=== PATIENT | female | born 1955 ===

== ENCOUNTER 2025-07-21 19:41 | Inpatient (IN) | payer MEDICARE, MEDICAID ==
[~2025-07-21] VITALS: Ht 167.6 cm; Wt 70.0 kg
--- NOTE | 2025-07-21 20:11 | Physician Documentation ---
History of Present Illness ~ Stated Complaint: GENERAL ILLNESS Time Seen by MD: 20:05 OK to notify your PCP?: Yes HPI History, review of systems, physical examination are limited secondary to patient's unwillingness to participate. Evidently this is a 69-year-old female with a known history of renal disease, who resides in an independent shelter apartments, was transported to our facility because she requires 247 care, however all of her caregivers quit because she was mean to them, noncompliant with her regimen, and mistreated it all of her caregivers. It appears the patient has been in hospice, however she had taken herself off of hospice. At the time of my examination the patient is awake, alert, but mumbles and does not enunciate any words. I can not understand a word that she is trying to say. Per EMS she is able to speak proper Yi with the appropriate enunciation. Review of Systems ROS 10 point review of systems was performed and unless noted above in HPI is negative for acute process/complaint. Physical Exam Vital Signs: Temperature: 97.4, Source: Axillary, Heart Rate: 84, Respiratory Rate: 16, BP: 146/68, Pulse Oximetry: 94, Weight: 70.000 Oxygen Flow Rate: 0 Physical Exam GENERAL: Awake, unable to assess mentation due to non participation, no apparent distress, chronically ill appearing, does not answers questions, does not not follows commands appropriately. Examined in bed 13. HEENT: Atraumatic, normocephalic, pupils equal, extraocular muscles intact, sclerae anicteric, mucus membranes dry, oropharynx is clear, no stridor. NECK: supple, full active range of motion, trachea midline, no thyromegaly, no lymphadenopathy, no JVD. CARDIOVASCULAR: regular rate/rhythm, no murmurs/gallops/rubs, Pulses are 2+ in all extremities and symmetric. Capillary refill less than 2 seconds. PULMONARY: Nonlabored, good air movement ,no respiratory distress, speaking in full sentences, clear to auscultation bilaterally, no wheezing, no ronchi, no rales, no accessory muscle use. GASTROINTESTINAL: Soft, non-tender, non-distended, normal active bowel sounds, no organomegaly, no pulsatile masses, no CVA tenderness. NEUROLOGIC: Normal facial symmetry. Moves all extremities symmetrically and with purpose. No truncal ataxia. She is mumbling. Unknown if this is dysarthria, dry mouth, or volitional non participation. MUSCULOSKELETAL: There is full range of motion of all extremities. There is no joint pain or joint swelling or joint erythema. There is no muscle pain or tenderness or swelling. EXTREMITIES: warm, well-perfused, no cyanosis, no clubbing, no edema, no acute deformities. Skin: warm, dry, no rashes or lesions, no jaundice, no petechiae orpurpura. No ecchymosis. PSYCHIATRIC: Unable to assess Progress Results/Orders Results/Orders Orders - DIMITRIS FALCON DO Urinalysis, Cult If Indicated (07/21/25 20:05) Chest,Single View (07/21/25 20:05) Monitor (07/21/25 20:05) Saline Lock (07/21/25 20:05) Page Hospitalist (07/21/25 23:43) Fill Out Med Reconciliation (07/21/25 23:43) Calcium Gluc 1gm/50ml Nacl,Iso (Calcium (07/21/25 23:45) Insulin Regular, Human (Humulin R 10 Uni (07/21/25 23:45) Dextrose 50%-Water (Dextrose 50%-Water S (07/21/25 23:45) Sodium Zirconium Cyclosilicate (Lokelma (07/21/25 23:45) Albuterol 2.5mg/3ml Nebule (Proventil 2. (07/21/25 23:45) * Rt Notification Q1H (07/21/25 23:43) Completed Orders - DIMITRIS FALCON DO Electrocardiogram (07/21/25 20:05) Cbc/Diff (07/21/25 20:05) CK (07/21/25 20:05) ESR (07/21/25 20:05) C-Reactive Protein (07/21/25 20:05) Pt Inr (07/21/25 20:05) PTT (07/21/25 20:05) Chest,Single View (07/21/25 20:05) PBNP (07/21/25 20:05) MG (07/21/25 20:05) CMP (07/21/25 20:05) Hs Troponin I W Calculations (07/21/25 20:05) Hs Troponin I W Calculations (07/21/25 22:05) Vital Signs 07/21/25 07/21/25 19:45 22:29 Temp 97.4 Pulse 84 65 Resp 16 16 B/P (MAP) 146/68 131/59 (83) Pulse Ox 94 96 O2 Flow Rate 0 Laboratory Tests Test 07/21/25 21:10 07/21/25 22:39 White Blood Count 9.1 Red Blood Count 3.90 L Hemoglobin 11.0 L Hematocrit 32.9 L Mean Corpuscular Volume 84.4 Mean Corpuscular Hemoglobin 28.3 Mean Corpuscular Hemoglobin Concent 33.5 Red Cell Distribution Width 17.8 H Platelet Count 243 Mean Platelet Volume 8.8 Neutrophils (%) (Auto) 83.5 H Lymphocytes (%) (Auto) 8.9 L Monocytes (%) (Auto) 4.6 Eosinophils (%) (Auto) 2.1 Basophils (%) (Auto) 0.9 Neutrophils # (Auto) 7.6 Lymphocytes # (Auto) 0.8 L Monocytes # (Auto) 0.4 Eosinophils # (Auto) 0.2 Basophils # (Auto) 0.1 CBC Comment Erythrocyte Sedimentation Rate 28 Prothrombin Time 11.4 INR International Normalized Ratio 1.1 Activated Partial Thromboplast Time 42 H Coagulation Comments Sodium Level 138 Potassium Level 6.6 *H Chloride Level 106 Carbon Dioxide Level 15.9 L Anion Gap 18 H Blood Urea Nitrogen 142 H Creatinine 13.52 H Estimated GFR/1.73 m2 3 BUN/Creatinine Ratio 10.5 Glucose Level 96 Calcium Level 8.3 L Magnesium Level 4.9 *H Total Bilirubin 0.4 Aspartate Amino Transf (AST/SGOT) 19 Alanine Aminotransferase (ALT/SGPT) 18 Alkaline Phosphatase 100 Total Creatine Kinase 89 Troponin I High Sensitivity 13 14 C-Reactive Protein 13.19 H Pro-B-Type Natriuretic Peptide 314 H Total Protein 5.6 L Albumin 2.2 L Globulin 3.4 Albumin/Globulin Ratio 0.6 L Chemistry Comments Troponin I High Sens Percent Delta 7 Troponin I Hi Sens Absolute Change 1 EKG/XRAY/CT/US/VASC/MRI EKG : Additional Comment EKG was obtained and interpreted by myself showing sinus rhythm of 89, normal VT interval, borderline QRS, no QT prolongation, normal axis, no STEMI. Medical Decision Making Findings Facility Status: ED Holds, E process The plan was discussed with the patient, who demonstrates clear understanding of the plan and is in agreement with the plan unless otherwise noted in the chart. All questions have been answered, all concerns were addressed unless otherwise documented. I was available throughout their ED stay for frequent reassessment and questions. Differential Diagnoses (considered and possible or likely): [Most likely this represents a social nightmare and patient will require placement, however per EMS she was adamant that she does not want to go to a half-way facility, however it also appears that she had antagonize all of her caregivers. This is likely a self inflicted crisis. From the medical standpoint, I have considered dehydration, hypoglycemia, electrolyte derangement, urinary tract infection, pneumonia, occult bacteremia, less likely ACS or CHF. There is no evidence of lateralizing sinuses suspect a stroke.] ??Differential Diagnoses (considered and unlikely, not requiring evaluation currently): [I do not appreciate any trauma] MDM Data Please see HPI for the following: Independent Historians and external Records Re view. Historian: Patient does not willing to provide any information at this time. Independent Historians: ?[Record review, EMS] Medication Management: [Reviewed medication list] Social History and determinants: [Reviewed] Please see the body of the note for the following: Any independent interpretations of ECG, imaging studies. All vitals signs/haemodynamics, ordered tests were independently reviewed and interpreted by myself. Nursing triage complaint and vitals reviewed, additional nursing notes were r eviewed as available and I agree unless otherwise noted or documented in contradiction in the chart Vital Signs: Independently reviewed Labs: Independently interpreted Imaging: Independently interpreted Old Medical Records: Independently reviewed, see HPI for relevant summary and information Pulse Oximetry: [98%] interpreted as [normal on room air] by me [Economics Department Chair: [Regular Rate, Regular rhythm, no ectopy, NSR] reviewed and interpreted by me] Additionally notably showing: [Hemodynamics reviewed. The patient is not febrile, not tachycardic, no evidence of hypotension respiratory distress. CBC shows mild anemia, no leukocytosis, 83% neutrophilic predominance. Coagulation panel was unremarkable. Chemistry notable for hyperkalemia of 6.6, less likely related to her chronic disease and severe kidney disease with a creatinine of 13.5. Magnesium is markedly elevated. Troponin is normal. BNP slightly elevated.. CRP is notably chest x-ray shows pulmonary edema elevated] Tests considered but not ordered include: [Not applicable] Social Determinants of Health Impact: Patient was evaluated in [facility], or [facility] [place] to healthcare due to below par ratio of patient to medical providers. [] Comorbid Conditions Impacting Present Evaluation and Care/Treatment: [Multiple, see list] Management Discussions with other Healthcare Providers: [Hospitalist regarding admission] Treatment and Disposition Medication Management (Given or considered): [Hyperkalemia treatment]. See EMR for details Consideration for Hospitalization/Escalation/Deescalation of Care: Admission for hospitalization an inpatient management is necessary for further management of her end-stage kidney disease and hyperkalemia. ?ED Course:?[No clinical deterioration] ?Shared decision making:?[] Code status:?FULL Please see the full Electronic Medical Record for full details of nursing documentation, medications list, other records of complete past medical history and conditions, vital signs, laboratory studies, and any radiologic study interpretations by radiologists. Portions of this note were completed using [facility] dictation software and as a result there may exist minor errors in spelling. I have reviewed elements of past family and social history and agree as included in note. Departure Disposition: ADMITTED INPATIENT Admitted to Inpatient Unit: to hospitalist Impression: Primary Impression: Hyperkalemia Additional Impressions: Anemia End stage renal disease Acute kidney injury Generalized weakness Condition: Guarded Referrals: NO PRIMARY CARE PROVIDER (PCP) Critical Care Note Critical Care Note CRITICAL CARE TIME: [ 45] minutes Treatments/Evaluations: Close monitoring and treatment of unstable vital signs, cardiorespiratory, and neurologic status, while maintaining tight balance of fluid, respiratory, and cardiac interventions. This time includes discussing the case with the patient and the patients family. This time does not include all procedures stated elsewhere in this record. This time also includes reviewing old records, labs and radiological studies. This time includes examining and re- examining the patient. Additionally, this time also includes arranging care with admitting and consulting physicians. Signature Scribe Signature: No scribe Attestation: This note accurately reflects clinical decisions, work performed by myself, Dimitris Falcon, DIMITRIS PETER DO Jul 21, 2025 20:11
--- NOTE | 2025-07-21 20:12 | ELECTROCARDIOGRAPH REPORT ---
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 Prasanth Patricia Measurements Intervals [place] Rate: 89 P: 72 NV: 151 QRS: 75 QRSD: 112 T: 60 QT: 373 QTc: 454 Interpretive Statements Sinus rhythm Borderline intraventricular conduction delay Borderline low voltage, extremity leads Abnormal inferior Q waves Electronically Signed On 08-02-2025 18:47:[address] Prasanth Patricia Please click the below link to view image of tracing.
--- NOTE | 2025-07-21 20:32 | RADIOLOGY REPORT ---
CHEST RADIOGRAPH Indication: Weakness Technique: Single frontal view of the chest was obtained COMPARISON: None FINDINGS: Lines and Tubes: None Lungs: Edema Pleura: Small bilateral pleural effusions No pneumothorax. Cardiomediastinal contours: Unremarkable Bones: Unremarkable IMPRESSION: Pulmonary edema
[2025-07-21 21:26] LABS: MEAN PLATELET VOLUME 8.8 FL (7.4-10.4); RED CELL DISTRIBUTION WIDTH 17.8 % (11.5-14.5)
[2025-07-21 21:36] LABS: APTT 42 SECONDS (22-32); INR 1.1 INR
[2025-07-21 21:55] LABS: CREATININE 13.52 MG/DL (0.40-0.90); PRO BRAIN NATRIURETIC PEPTIDE 314 PG/ML (0-125); TOTAL CARBON DIOXIDE 15.9 MMOL/L (24-32); eCRCL 4 ML/MIN; eGFR 3 ML/MIN
[2025-07-21] MEDS: albuterol 2.5 MG/3 ML nebule NEB ONE (23:45)
[2025-07-21] MEDS ORDERED: CALCIUM GLUC 1gm/50ml NACL,iso 50 ML IV PRN (23:45)
[2025-07-22] MEDS ORDERED: ondansetron/PF 4mg/2ml inj IV PRN (00:45)
[2025-07-22] MEDS ORDERED: magnesium hydroxide 30ml (MOM) UD suspension PO PRN (00:45)
[2025-07-22] MEDS ORDERED: mag hydrox/Alum hydrox/simeth 30ml oral suspension PO PRN (00:45)
[2025-07-22] MEDS ORDERED: furosemide 10 MG/1 ML 10ml inj IV SCH (01:00)
--- NOTE | 2025-07-22 02:03 | RADIOLOGY REPORT ---
EXAM: CT CT HEAD INDICATION: ALOC TECHNIQUE: CT of the head without intravenous contrast. Radiation Dose : 1. Head: CT Dose: CTDI volume is 52.96 mGy. Dose-length product is 973.09 mGy*cm The dose indicators for CT are the volume Computed Tomography (CT) Dose Index (CTDIvol) and the Dose Length Product (DLP), and are measured in units of mGy and mGy-cm, respectively. These indicators are not patient dose, but values generated from the CT scanner acquisition factors. The report includes radiation exposure data for exposures received during this examination. COMPARISON: None FINDINGS: There is no evidence of acute intracranial hemorrhage, extra-axial collection, mass effect, midline s hift, herniation or hydrocephalus. The ventricles, sulci and cisterns are age appropriate. The morfin-white differentiation is intact. Patchy periventricular and subcortical white matter hypoattenuation is nonspecific but may be related to small vessel ischemic disease. The visualized paranasal sinuses and mastoid air cells are clear. The surrounding soft tissues and osseous structures are unremarkable. IMPRESSION: 1. No acute intracranial abnormality. Radiation optimization: All CT scans at this facility use at least one of these dose optimization lianna hniques: automated exposure control mA and/or kV adjustment per patient size (includes targeted exam s where dose is matched to clinical indication) or iterative reconstruction.
--- NOTE | 2025-07-22 06:01 | HISTORY AND PHYSICAL-Residence ---
History & Physical Providers to CC Resident Creating Document: AVTAR THEODORE, RES ~ History of Present Illness Reason for Admit\Complaint: Acute on chronic kidney disease History of Present Illness 69 years old female with past medical history of renal failure, hypertension, recurrent urinary tract infection, lupus was brought in from her [facility] after she revoked her self out of hospice care. The patient is not able to communicate any of her wishes, concerns or complaints. She is not able to answer to any of my questions. She is able to follow commands but is not communicating at all. Per the ER physician the patient was very rude and mean to all of her caregivers at the [facility] and was hence transferred out of the facility as they were not able to provide care for the patient. The ER physician also reported that the patient was on hospice care until yesterday in view of her advanced renal failure but has decided to get out of hospice care. We tried to reach [facility] for further information regarding the patient but were not successful. The patient initially refused to any treatment but is not able to communicate her understanding of her decisions. We are not sure in the patient is oriented to time place and person. She mumbles seeing her back hurts but apart from that she is not able to say anything else. Allergies: Coded Allergies: Penicillins (Verified Allergy, Unknown, 07/22/25) antihemophilic factor VIII, human recombinant (Verified Allergy, Unknown, 07/22/25) codeine (Verified Allergy, Unknown, 07/22/25) fentanyl (Verified Allergy, Unknown, 07/22/25) TOPICAL ketamine (Verified Allergy, Unknown, 07/22/25) midazolam (Verified Allergy, Unknown, 07/22/25) propofol (Verified Allergy, Unknown, 07/22/25) Past Medical History Past Medical History From the records sent from [facility] patient has a history of renal failure, hypertension, urinary tract infections, lupus Past Surgical History Surgical History Comment Not known Past Social History Social History Comment Was on hospice care but currently is not on hospice care. Was a resident at [facility] BRADEN FELICIANO Unable to perform a complete review of systems. Exam Vitals: Vital Signs Date Time Temp Pulse Resp B/P (MAP) Pulse Ox O2 Delivery O2 Flow Rate FiO2 07/22/25 04:00 82 8 142/68 (92) 96 07/21/25 19:45 97.4 0 General: General: Somnolent elderly female, emaciated, mumbling not able to communicate clearly. Follows commands. Intermittently answers questions but then continues to not answer or communicate. HEENT: Conjunctiva pink, Sclera clear, Mucus Membranes moist. Neck: Supple without masses and tenderness. Resp: Bibasilar crackles present. Heart: Regular Rate and rhythm, normal S1 and S2 without murmur, rub or gallop. Abdomen: Soft and non tender no organomegaly Extremities: 3+ edema in bilateral lower extremities. Skin: Warm and Dry. Neurology: Mood more four extremities. Musculoskeletal: Not able to assess complete range of motion. Psychiatry: Not able to assess as the patient is not able to communicate her wishes. Diagnostic Data Last Recorded Lab Results: 07/22/25 0700 07/22/25 0740 Diagnostic Data: Laboratory Tests Test 07/21/25 21:10 Prothrombin Time 11.4 SECONDS (9.0-12.0) INR International Normalized Ratio 1.1 INR Activated Partial Thromboplast Time 42 SECONDS (22-32) H Coagulation Comments Additional Plan Acute on chronic kidney disease Hyperkalemia Hypermagnesemia The patient's creatinine is 13.52 and BUN is 142. Has a elevated potassium of 6.6. No significant EKG changes noted. Magnesium 4.9. The patient was planned to be treated with IV insulin, IV calcium gluconate and Lokelma in view of her hyperkalemia. She refused any treatments initially. She initially refused to get any IV put in. Now she has a agreed. We will proceed with treatment as accepted by the patient. The on-call information management specialist Dr. Laura was consulted by Dr. Perrin. Per Dr. Laura the patient has a history of obstructive uropathy and has been refusing treatments/intervention in the past. Dr. Laura recommended urology consultation per Dr. Perrin. Follow up with the ultrasound of the abdomen. Also started the patient on IV Lasix 40 b.i.d. in view of her fluid overloaded condition. Patient might require dialysis. Strict input output monitoring. Follow up as per Nephrology recommendation. Consult Urology. Continue to monitor the patient's electrolytes closely. Congestive heart failure Patient has a elevated proBNP of 314 X-ray significant for pulmonary congestion most likely due to her fluid overloaded state. Started the patient on IV Lasix 40 b.i.d.. Follow up with the ECHO. History of lupus Patient has a elevated C-reactive protein of 13.19 Records at her bedside stated that she has a history of lupus. Awaiting to get further information on her medical condition. Disposition: The patient is not able to communicate her wishes, concerns or complaints. I am not sure of the patient is at her baseline or if she is more confused than usual. The patient is not able to state her code status or her advance directive. She is not able to explain her wishes. Hence currently we are placing the patient on full code. She reports she has two children but is not able to provide further information. Please consult psychotherapist social worker. We also tried contacting the patient's care facility but the office is closed until 9:00 a.m.. 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 Consult mental health case manager, psychotherapist social worker, urology. Avtar Theodore MD Internal Medicine Resident, PGY-3 Addendum I personally reviewed the chart, labs and imaging and reviewed the patient with the team. I agree with the assessment and plan as documented by the resident. Patient was seen through remote audio-visual assessment through HIPAA compliance setup. Date of Service: Jul 22, 2025 Billing Provider: NAYANA PELLETIER MD, SURYA PRATIK, TIERA Jul 22, 2025 06:01 NAYANA PELLETIER MD Jul 23, 2025 06:46
[2025-07-22] MEDS: SODIUM ZIRCONIUM CYCLOSILICATE 10 GM POWD.PACK PO ONE (06:26)
[2025-07-22] MEDS: furosemide 10 MG/1 ML 10ml inj IV SCH (06:27)
[2025-07-22] MEDS: dextrose 50%-water 50ml dispensing syringe IV ONE (06:27)
[2025-07-22] MEDS: insulin regular, human 10 units/0.1 ml syringe IV ONE (06:33)
[2025-07-22 08:00] LABS: MEAN PLATELET VOLUME 9.3 FL (7.4-10.4); RED CELL DISTRIBUTION WIDTH 17.6 % (11.5-14.5)
[2025-07-22] MEDS: docusate sod 100mg capsule PO SCH (08:00)
--- NOTE | 2025-07-22 08:23 | PROGRESS NOTE ---
Progress Note Dictate Providers to CC ~ Central Line/PICC still needed: N\A Antibiotic Ordered?: N/A MRSA Education MRSA Education Provided to pt: N/A Subjective Subjective i have consulted on her twice in recent times, once in [facility] last admission and once in [facility] after that. during both times, she was quite rude to me, and to other staff members, and clearly mentioned 'why none of you understand that I want only comfort measures and I do not want any of you doing all these proposed procedures on me?' She was fully conscious and oriented. She clearly did not allow me to initiate dialysis , nor would she allow who personally came and spoke to her to make her understand the need for the cystoscopy and ureteric stents to relieve the kidney failure after I spent almost 2 hours on that day to help her. All I got was a rude response and she went on hospice. We both signed off. She told me that she almost on the table during a previous operative procedure and she would not allow any other anesthesiologists except some one to give her anesthesia, but then backed off totally. She also wanted to know if anyone will take the gall bladder out of her that was inflamed. Then she said no to that as well. please review records about these. The team in [facility] spent quite sometime sorting out her needs and I am not in any position to help her at this time. When she was fully conscious, she flat out refused dialysis. No family to talk to as she says she is estranged from her folks. Now that she is uremic, it is not ethically correct on my part to jump on doing procedures to get her out of this with dialysis, and I am not prepared to get involved with her renal care. Please understand that I make this decision after spending hours with her when she was fully conscious. She made a conscious decision to not be placed on dialysis or ureteric stent intervention. All she wanted was to peacefully. Objective Vitals Vital Signs Date Time Temp Pulse Resp B/P (MAP) Pulse Ox O2 Delivery O2 Flow Rate FiO2 07/22/25 08:00 16 07/22/25 06:00 82 96 07/21/25 19:45 97.4 0 Lab Results: 07/22/25 0700 07/21/25 2110 Coagulation Studies Laboratory Tests Test 07/21/25 21:10 Prothrombin Time 11.4 SECONDS (9.0-12.0) INR International Normalized Ratio 1.1 INR Activated Partial Thromboplast Time 42 SECONDS (22-32) H Coagulation Comments REED LANDA MD Jul 22, 2025 08:23
[2025-07-22] MEDS: heparin, porcine 5000 units/ml vial SQ SCH (09:10)
[2025-07-22 09:58] LABS: CREATININE 13.62 MG/DL (0.40-0.90); TOTAL CARBON DIOXIDE 16.8 MMOL/L (24-32); eCRCL 4 ML/MIN; eGFR 3 ML/MIN
[2025-07-22 11:00] VITALS: BP 93/56; PULSE 60; RESP 18; TEMP 98.1; O2SAT 98
[2025-07-22 13:37] VITALS: RESP 16; O2SAT 93
[2025-07-22 15:00] VITALS: BP 112/62; PULSE 62; RESP 19; TEMP 97.9; O2SAT 97
--- NOTE | 2025-07-22 16:56 | RADIOLOGY REPORT ---
CLINICAL INFORMATION: 70 years old, Female; ALY . TECHNIQUE: Grayscale sonographic imaging of the abdomen was performed, assisted by color Doppler lianna hnique. COMPARISON: None FINDINGS: Examination is limited due to the patient's clinical condition. Patient is unable to coope rate with the exam. The gallbladder wall measures 1.5 mm in thickness, within normal limits. Shadow ing gallstone in the gallbladder measures up to 2.2 cm in greatest dimension. Negative reported sonog raphic Tena's sign. The common bile duct measures 4.5 mm in diameter, within normal limits. Liver is normal in size. Coarsened, heterogeneous echogenicity of the liver. Pancreas is obscured by bowel gas. The right kidney measures 9.1 cm. There is no hydronephrosis. Grossly unremarkable cortical thickne ss and echogenicity, although suboptimally evaluated. There is trace free fluid interposed between th e right kidney and liver. The left kidney measures 9.3 cm. There is no hydronephrosis. Grossly unremarkable cortical thickne ss and echogenicity, although suboptimally evaluated. The spleen measures 9.5 cm. Unremarkable echogenicity. IVC is patent. Aorta is poorly visualized. IMPRESSION: 1. Cholelithiasis. No sonographic evidence of acute cholecystitis. 2. Heterogeneous, coarsened liver echotexture. Correlate with clinical findings. Liver is suboptimal ly evaluated on this exam. 3. Limited examination for the reasons described above. 4. Trace free fluid interposed between the liver and right kidney.
[2025-07-22 18:00] VITALS: BP 154/64; PULSE 77; RESP 19; TEMP 97.3; O2SAT 95
[2025-07-22] MEDS ORDERED: morphine 10mg/ml inj. IV PRN (18:30)
--- NOTE | 2025-07-22 18:58 | PROGRESS NOTE- Residence ---
Progress Note - Resident Providers to CC Resident Creating Document: BALAJI PIERSON RES ~ Antibiotic Timeout Antibiotic Ordered?: No Subjective Patient seen and examined today. She is in pain and only moans to sternal rub or moving her legs. Deputy Sheriff Generalist-Dr. Laura aware of the patient and she wanted to peacefully without any aggressive treatment measures when she was fully conscious. Now, she can not talk and just moans with pain. Agreeing with Dr. Laura's assessment and strongly believe that she needs to be comfort care. She was on comfort care back at the facility. Changed her back to DNR with the comfort care. Tried contacting the [facility] at [phone] but none answered. Objective Vital Signs Date Time Temp Pulse Resp B/P (MAP) Pulse Ox O2 Delivery O2 Flow Rate FiO2 07/22/25 15:00 97.9 62 19 112/62 (79) 97 Room Air 07/21/25 19:45 0 Result Diagram: 07/22/25 0700 07/22/25 0740 General: GCS four-eye opening to pain, no verbal response, no motor response HEENT: Normocephalic and atraumatic. Pupils equal round and reactive to light and accommodation. Extraocular movements intact. Oral and nasal mucosa dry Neck: Trachea is in midline. No masses or JVD Lungs: Bilateral mildly decreased breath sounds. Bilateral basal crackles present. No rhonchi or wheezes Heart: Regular rate and rhythm. S1-S2 normal. No rubs or murmurs Abdomen: Soft, nontender and nondistended. Bowel sounds present COMMUNITY LIAISON OFFICER: Severe pain upon touching or even moving legs slightly. Can not understand or follow commands. Could not elicit neurological examination Extremities: 3+ bilateral pedal edema. No cyanosis or clubbing Skin: Warm and dry Coagulation Studies Laboratory Tests Test 07/21/25 21:10 Prothrombin Time 11.4 SECONDS (9.0-12.0) INR International Normalized Ratio 1.1 INR Activated Partial Thromboplast Time 42 SECONDS (22-32) H Coagulation Comments Advance Care Planning Advanced Care plannin - 30 Minutes Plan Plan The 69-year-old female with past medical history of end-stage renal disease, obstructive uropathy, hypertension, recurrent urinary tract infection, lupus was brought in from her [facility] Facility as they could not provide her 24 hour care. She was on hospice at the facility. Tried contacting the [facility] facility at [phone] but none answered. No family available. Now, she does not respond and only moans to pain. She does not understand and cannot follow commands. Can not eat or drink anything. Her electrical prospecting supervisor-Dr. Laura is aware of the patient's wishes to be on comfort care. I strongly agree with the plan and the patient is changed to DNR with comfort care. She is getting morphine/Ativan/senna/Tylenol as needed Requested social insurance analyst consult. Acute on chronic kidney disease Hyperkalemia Hypermagnesemia Congestive heart failure History of lupus Complete immobility due to fraility Balaji Pierson MD Internal Medicine Resident, PGY 3 Date of Service: Jul 22, 2025 Billing Provider: ZANDER MCWILLIAMS MD, MANOJNA RES Jul 22, 2025 18:58
[2025-07-22 20:00] VITALS: RESP 19; O2SAT 95
[2025-07-23 07:00] VITALS: BP 139/54; PULSE 87; RESP 14; TEMP 97; O2SAT 94
[2025-07-23 07:16] LABS: MEAN PLATELET VOLUME 8.9 FL (7.4-10.4); RED CELL DISTRIBUTION WIDTH 17.9 % (11.5-14.5)
[2025-07-23 07:34] LABS: CHOL/HDL RATIO 5.4 (0.00-4.99); CREATININE 13.82 MG/DL (0.40-0.90); LDL CHOLESTEROL 111 MG/DL (50-100); eCRCL 4 ML/MIN; eGFR 3 ML/MIN
[2025-07-23 08:37] LABS: TOTAL CARBON DIOXIDE 13.7 MMOL/L (24-32)
[2025-07-23] MEDS: morphine 10mg/0.5ml (conc. morphine) oral syringe PO PRN (10:37)
[2025-07-23 10:56] VITALS: BP 130/64; PULSE 88; RESP 18; TEMP 96.9; O2SAT 91
[2025-07-23] MEDS: morphine 4 MG/ML inj SYRINge IV PRN (10:56)
[2025-07-23] MEDS ORDERED: diazepam inj 5 MG/ML inj. IV PRN (11:15)
[2025-07-23] MEDS ORDERED: haloperidol lactate 5mg/ml inj IM PRN (11:30)
[2025-07-23 13:00] VITALS: RESP 18
--- NOTE | 2025-07-23 16:52 | PROGRESS NOTE- Residence ---
Progress Note - Resident Providers to CC Resident Creating Document: BALAJI PIERSON RES ~ Antibiotic Timeout Antibiotic Ordered?: No Subjective Patient seen and examined today. She is resting in the bed. Nonverbal and does not understand any sentences. Objective Vital Signs Date Time Temp Pulse Resp B/P (MAP) Pulse Ox O2 Delivery O2 Flow Rate FiO2 07/23/25 13:00 18 Room Air 07/23/25 10:56 96.9 88 130/64 (86) 91 07/21/25 19:45 0 Result Diagram: 07/23/2565707/23/25657 General: GCS 6-spontaneous eye opening, no verbal response, no motor response HEENT: Normocephalic and atraumatic. Pupils equal round and reactive to light and accommodation. Extraocular movements intact. Oral and nasal mucosa dry Neck: Trachea is in midline. No masses or JVD Lungs: Bilateral mildly decreased breath sounds. Bilateral basal crackles present. No rhonchi or wheezes Heart: Regular rate and rhythm. S1-S2 normal. No rubs or murmurs Abdomen: Soft, nontender and nondistended. Bowel sounds present IN HOME AIDE: Severe pain upon touching or even moving legs slightly. Can not understand or follow commands. Could not elicit neurological examination Extremities: 3+ bilateral pedal edema. No cyanosis or clubbing Skin: Warm and dry Coagulation Studies Laboratory Tests Test 07/21/25 21:10 Prothrombin Time 11.4 SECONDS (9.0-12.0) INR International Normalized Ratio 1.1 INR Activated Partial Thromboplast Time 42 SECONDS (22-32) H Coagulation Comments Plan Plan The 69-year-old female with past medical history of end-stage renal disease, obstructive uropathy, hypertension, recurrent urinary tract infection, lupus was [facility] in from her [facility] as they could not provide her 24 hour care. She was on hospice at the facility. Tried contacting the [facility] at [phone] but none answered. No family available. Now, she does not respond and only moans to pain. She does not understand and cannot follow commands. Can not eat or drink anything. Her safety manager-Dr. Laura is aware of the patient's wishes to be on comfort care. I strongly agree with the plan and the patient is changed to DNR with comfort care. She is getting morphine/Ativan/senna/Tylenol/Haldol as needed Requested social work job titles consult. 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
--- NOTE | 2025-07-23 17:39 | CARDIOLOGY REPORT ---
APPROVED REPORT EXAM: Comprehensive 2D, Doppler, and color-flow Echocardiogram. Patient Location: [address] Blood Pressure: 93/56 mmHg Heart Rate: 75 bpm Rhythm: Sinus Rhythm Indications Congestive Heart Failure Kidney Failure Hypertension Garage Door Installer: None Previous echo: None 2D Dimensions RVDd 3.4 cm LA Diam4.5 cm RA Minor3.5 cmLVOT Diameter 1.81 (1.8-2.4cm) IVC 11.92 mmCO 3.5 L/min M-Mode Dimensions Left Atrium(MM) 4.43 (2.5-4.0cm) IVSd 1.04 (0.7-1.1cm) LVDd 4.13 (4.0-5.6cm) Aortic Root 2.76 (2.2-3.7cm) PWd 1.08 (0.7-1.1cm) Aortic Cusp Exc 1.87 (1.5-2.0cm) IVSs 1.08 cm MV EPSS 0.7 (<0.5cm) LVDs 2.77 (2.0-3.8cm) FS (%) 33 % PWs 1.40 cm ESV(Teich) 28.8 ml LVEF(%) 62 (>50%) Aortic Valve AoV Peak Chris. 175.5 cm/s AoV VTI 33.6 cm AO Peak GR. 12.3 mmHg AO Mean GR. 6 mmHg LVOT VTI 27.89 cm LVOT Peak Chris. 137.9 cm/s JERO(VTI)/BSA 2.13 cm2/m2 EJRO (VTI) 2.13 cm2 Mitral Valve MV E Velocity 64.3 cm/s MV Peak Gr. 5 mmHg MV DECEL TIME 172 ms MV A Velocity 107.0 cm/s MV Mean Gr. 2 mmHg MV PHT 56 ms E/A Ratio 0.6 MVA (PHT) 3.93 cm2 MV REqf931.1 cm/sMV VMean62.4 cm/s MVA VTI3.50 cm2MV VTI20.5 cm TDI Lateral E' P. V10.47 cm/s E/Lateral E' 6.1 Tricuspid Valve TR P. Velocity 305 cm/s RAP ESTIMATE 10 mmHg TR Peak Gr. 37 mmHg RVSP 47 mmHg Pulmonary Vein S1 Velocity 57.8 cm/s D2 Velocity 39.2 cm/s PVa Cazdlpbm02.3 cm/s PVa [id number] msec LEFT VENTRICLE Normal LV size and wall thickness. Overall systolic function is normal. Overall LVEF is 55-60%. RIGHT VENTRICLE Right ventricle is mildly dilated with normal function. Estimated PA systolic pressure is 47 mmHg. ATRIA Left atrium is mildly dilated. The right atrium size is normal. AORTIC VALVE Trileaflet AV appears sclerotic without stenosis. Trace insufficiency. MITRAL VALVE Mild MV annular calcification without stenosis. Mild regurgitation. TRICUSPID VALVE TV appears structurally normal with trace regurgitation. PULMONIC VALVE Normal PV without stenosis, physiologic insufficiency. GREAT VESSELS The aortic root is normal in size. IVC is normal in size and collapses less than 50% with inspiration . PERICARDIUM Normal pericardium. No pericardial effusion seen. Right Pleural effusion is present. Other Information Study Quality: Adequate Conclusion Overall LVEF is 55-60%. Normal LV size and wall thickness. Overall systolic function is normal. Right ventricle is mildly dilated with normal function. Estimated PA systolic pressure is 47 mmHg. Left atrium is mildly dilated. The right atrium size is normal. Trileaflet AV appears sclerotic without stenosis. Trace insufficiency. Mild MV annular calcification without stenosis. Mild regurgitation. TV appears structurally normal with trace regurgitation. Normal PV without stenosis, physiologic insufficiency. Normal pericardium. No pericardial effusion seen. Right Pleural effusion is present.
[2025-07-23 18:00] VITALS: BP 162/77; PULSE 85; RESP 21; TEMP 98.9; O2SAT 93
[2025-07-23 22:00] VITALS: BP 149/74; PULSE 84; RESP 14; TEMP 96.8; O2SAT 93
[2025-07-24] MEDS: ondansetron/PF 4mg/2ml inj IV PRN (13:22)
[2025-07-24 18:00] VITALS: BP 139/70; PULSE 84; RESP 13; TEMP 97.6; O2SAT 93
--- NOTE | 2025-07-24 20:08 | PROGRESS NOTE- Residence ---
Progress Note - Resident Providers to CC Resident Creating Document: OFELIA PIERSONJabariJOSE RES ~ Antibiotic Timeout Antibiotic Ordered?: No Subjective Patient seen and examined today. Comfortably resting in the bed. Nonverbal. Objective Vital Signs Date Time Temp Pulse Resp B/P (MAP) Pulse Ox O2 Delivery O2 Flow Rate FiO2 07/24/25 08:00 Room Air 0.0 07/23/25 22:00 96.8 84 14 149/74 (99) 93 Result Diagram: 07/23/2565707/23/25657 General: GCS 6-spontaneous eye opening, no verbal response, no motor response HEENT: Normocephalic and atraumatic. Pupils equal round and reactive to light and accommodation. Extraocular movements intact. Oral and nasal mucosa dry Neck: Trachea is in midline. No masses or JVD Lungs: Bilateral mildly decreased breath sounds. Appears tachypneic. Bilateral basal crackles present. No rhonchi or wheezes Heart: Appears tachycardic and sinus rhythm. S1-S2 normal. No rubs or murmurs Abdomen: Soft, nontender and nondistended. Bowel sounds present OCCUPATIONAL HEALTH AND SAFETY ADVISER: Severe pain upon touching or even moving legs slightly. Can not understand or follow commands. Could not elicit neurological examination Extremities: 3+ bilateral pedal edema. No cyanosis or clubbing Skin: Warm and dry Coagulation Studies Laboratory Tests Test 07/21/25 21:10 Prothrombin Time 11.4 SECONDS (9.0-12.0) INR International Normalized Ratio 1.1 INR Activated Partial Thromboplast Time 42 SECONDS (22-32) H Coagulation Comments Plan Plan The 69-year-old female with past medical history of end-stage renal disease, obstructive uropathy, hypertension, recurrent urinary tract infection, lupus was brought in from her [facility] as they could not provide her 24 hour care. She was on hospice at the facility. Tried contacting the [facility] at [phone] but none answered. No family available. Now, she does not respond and only moans to pain. She does not understand and cannot follow commands. Can not eat or drink anything. Her product development chemist-Dr. Laura is aware of the patient's wishes to be on comfort care. I strongly agree with the plan and the patient is changed to DNR with comfort care. She is getting morphine/Ativan/senna/Tylenol/Haldol as needed Requested clinical social work aide consult. 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 Referrals sent to SNFs. Awaiting placement Cindy Pierson MD Internal Medicine Resident, PGY 3 Date of Service: Jul 24, 2025 Billing Provider: ZANDER MCWILLIAMS MD, MANOJNA RES Jul 24, 2025 20:08
[2025-07-24 22:00] VITALS: BP 153/87; PULSE 85; RESP 16; TEMP 97.6; O2SAT 92
[2025-07-25 06:00] VITALS: BP 134/67; PULSE 81; RESP 14; TEMP 97.6; O2SAT 94
[2025-07-25 08:00] VITALS: RESP 14; O2SAT 94
[2025-07-25 18:30] VITALS: BP 146/77; PULSE 89; RESP 17; TEMP 97; O2SAT 94
[2025-07-25 22:00] VITALS: BP 136/79; PULSE 83; RESP 16; TEMP 97.6; O2SAT 94
[2025-07-26 06:00] VITALS: BP 150/85; PULSE 87; RESP 22; TEMP 97.4; O2SAT 95
[2025-07-26 10:00] VITALS: BP 142/74; PULSE 93; RESP 17; TEMP 97.1; O2SAT 94
[2025-07-26 18:00] VITALS: BP 137/71; PULSE 82; RESP 16; TEMP 97.2; O2SAT 93
--- NOTE | 2025-07-26 20:16 | PROGRESS NOTE- Residence ---
Progress Note - Resident Providers to CC Resident Creating Document: BALAJI PIERSON RES ~ Antibiotic Timeout Antibiotic Ordered?: No Subjective Patient seen and examined today. Pulled out her IV line. Per nurses, has been denying morphine and any other medication for anxiety. Objective Vital Signs Date Time Temp Pulse Resp B/P (MAP) Pulse Ox O2 Delivery O2 Flow Rate FiO2 07/26/25 10:00 97.1 93 17 142/74 (96) 94 Room Air 07/26/25 08:00 0.0 Result Diagram: 07/23/2565707/23/25657 General: GCS 6-spontaneous eye opening, no verbal response, no motor response HEENT: Normocephalic and atraumatic. Pupils equal round and reactive to light and accommodation. Extraocular movements intact. Oral and nasal mucosa dry Neck: Trachea is in midline. No masses or JVD Lungs: Bilateral mildly decreased breath sounds. Appears tachypneic. Bilateral basal crackles present. No rhonchi or wheezes Heart: Appears tachycardic and sinus rhythm. S1-S2 normal. No rubs or murmurs Abdomen: Soft, nontender and nondistended. Bowel sounds present SURGERY SCHEDULING COORDINATOR: Severe pain upon touching or even moving legs slightly. Can not understand or follow commands. Could not elicit neurological examination Extremities: 3+ bilateral pedal edema. No cyanosis or clubbing Skin: Warm and dry Coagulation Studies Laboratory Tests Test 07/21/25 21:10 Prothrombin Time 11.4 SECONDS (9.0-12.0) INR International Normalized Ratio 1.1 INR Activated Partial Thromboplast Time 42 SECONDS (22-32) H Coagulation Comments Plan Plan The 69-year-old female with past medical history of end-stage renal disease, obstructive uropathy, hypertension, recurrent urinary tract infection, lupus was brought in from her [facility] as they could not provide her 24 hour care. She was on hospice at the facility. Tried contacting the [facility] at [phone] but none answered. No family available. Now, she does not respond and only moans to pain. She does not understand and cannot follow commands. Can not eat or drink anything. Her broadband technician-Dr. Laura is aware of the patient's wishes to be on comfort care. I strongly agree with the plan and the patient is changed to DNR with comfort care. She is getting morphine/Ativan/senna/Tylenol as needed Requested 7th grade social studies teacher consult. Acute on chronic kidney disease Hyperkalemia Hypermagnesemia Acute on chronic Congestive heart failure with preserved EF History of lupus Complete immobility due to fraility Balaji Pierson MD Internal Medicine Resident, PGY 3 Date of Service: Jul 26, 2025 Billing Provider: ZANDER MCWILLIAMS MD, MANOJNA RES Jul 26, 2025 20:16
[2025-07-27 06:37] VITALS: BP 122/67; PULSE 82; RESP 15; TEMP 97.4; O2SAT 93
--- NOTE | 2025-07-27 18:22 | PROGRESS NOTE- Residence ---
Progress Note - Resident Providers to CC Resident Creating Document: SARAY MCMANUS RES ~ Antibiotic Timeout Antibiotic Ordered?: No Subjective Patient seen and examined today. She is hungry and requesting for a diet, she can have a regular diet if she is able to tolerate else she can have nectar thick/puree diet. She denies any other concerns or complaints. Objective Vital Signs Date Time Temp Pulse Resp B/P (MAP) Pulse Ox O2 Delivery O2 Flow Rate FiO2 07/27/25 09:01 16 07/27/25 08:20 Room Air 0.0 07/27/25 06:37 97.4 82 122/67 (85 93 Result Diagram: 07/23/2565707/23/25657 General: Awake and alert, No acute distress HEENT: Normocephalic and atraumatic. Pupils equal round and reactive to light and accommodation. Extraocular movements intact. Oral and nasal mucosa dry Neck: Trachea is in midline. No masses or JVD Lungs: Bilateral mildly decreased breath sounds. Appears tachypneic. Bilateral basal crackles present. No rhonchi or wheezes Heart: Appears tachycardic and sinus rhythm. S1-S2 normal. No rubs or murmurs Abdomen: Soft, nontender and nondistended. Bowel sounds present TREE TAPPING LABORER: Severe pain upon touching or even moving legs slightly. Can not understand or follow commands. Could not elicit neurological examination Extremities: 3+ bilateral pedal edema. No cyanosis or clubbing Skin: Warm and dry Coagulation Studies Laboratory Tests Test 07/21/25 21:10 Prothrombin Time 11.4 SECONDS (9.0-12.0) INR International Normalized Ratio 1.1 INR Activated Partial Thromboplast Time 42 SECONDS (22-32) H Coagulation Comments Plan Plan The 69-year-old female with past medical history of end-stage renal disease, obstructive uropathy, hypertension, recurrent urinary tract infection, lupus was [facility] in from her [facility] as they could not provide her 24 hour care. She was on hospice at the facility. Tried contacting the [facility] facility at [phone] but none answered. No family available. Now, she does not respond and only moans to pain. She does not understand and cannot follow commands. Can not eat or drink anything. Her non linear editor-Dr. Laura is aware of the patient's wishes to be on comfort care. I strongly agree with the plan and the patient is changed to DNR with comfort care. She is getting morphine/Ativan/senna/Tylenol as needed Requested social work coordinator consult. Acute on chronic kidney disease Hyperkalemia Hypermagnesemia Acute on chronic Congestive heart failure with preserved EF History of lupus Complete immobility due to fraility She is DNR with comfort care, please do not check Vitals, oxygen sats, no ST eval, or telemetry. Give her the diet of her choice. If she is unable tolerate regular diet, she can have puree/nectar thick diet. Saray Mcmanus MD IM Resident, PGY 3. Date of Service: Jul 27, 2025 Billing Provider: ZANDER MCWILLIAMS MD, ELIZABETH, RES Jul 27, 2025 18:22
[2025-07-27 20:00] VITALS: RESP 18
[2025-07-28 07:26] VITALS: RESP 14; O2SAT 96
--- NOTE | 2025-07-28 15:33 | DISCHARGE SUMMARY-Residence ---
Discharge Summary Providers to CC Resident Creating Document: ZACHERYEVEABHIJIT, RES ~ Discharge Summary Admission Diagnosis: HYPERKALEMIA Hospital Course DATE OF ADMISSION: 07/22/2025 DATE OF DISCHARGE: 07/28/2025 Hospital course same as mentioned discharge summary. 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 Laura public health nurse Complications: None Condition on DC: Stable for transfer Medication Profile: No Active Prescriptions or Reported Meds Discharge Summary: As per HPI: 69 years old female with past medical history of renal failure, hypertension, recurrent urinary tract infection, lupus was brought in from her [facility] Facility after she revoked her self out of hospice care. The patient is not able to communicate any of her wishes, concerns or complaints. She is not able to answer to any of my questions. She is able to follow commands but is not communicating at all. Per the ER physician the patient was very rude and mean to all of her caregivers at the [facility] and was hence transferred out of the facility as they were not able to provide care for the patient. The ER physician also reported that the patient was on hospice care until yest erday in view of her advanced renal failure but has decided to get out of hospice care. We tried to reach [facility] for further information regarding the patient but were not successful. The patient initially refused to any treatment but is not able to communicate her understanding of her decisions. We are not sure in the patient is oriented to time place and person. She mumbles seeing her back hurts but apart from that she is not able to say anything else. Hospital course: On further evaluation she had significantly elevated creatinine 13.52 BUN of 142. She had an elevated potassium of 6.6 with no significant EKG changes. Her magnesium was 4.9. She was planned to be treated with IV insulin IV calcium gluconate and Lokelma in view of her hyperkalemia, but she refused treatments initially later agreed. On-call public health nurse Dr. Laura was consulted by ED doctor Dr. Perrin per Dr. Laura patient has a history of obstructive uropathy and has been refusing treatments or interventions in the [place] [facility] Dr. Laura recommended to consult urology. She was started on Lasix 40 IV b.i.d. in view of fluid overload. Patient was also considered that she might be requiring dialysis considering significantly elevated creatinine and electrolyte abnormalities. She was brought in from [facility] and she was on hospice at the facility. Tried contacting the [facility] at [phone] but none answered. No family available. Now, she does not respond and only moans to pain. She does not understand and cannot follow commands. Can not eat or drink anything. Her public health nurse-Dr. Laura is aware of the patient's wishes to be on comfort care. We strongly agreed with the plan and the patient is changed to DNR with comfort care. Her hospital course is uncomplicated she is hemodynamically stable on the day of discharge and she has been discharged to [facility] rehab. Her physical exam is as follows: General: Awake and alert, No acute distress, minimal verbal and motor response HEENT: Normocephalic and atraumatic. Pupils equal round and reactive to light and accommodation. Extraocular movements intact. Oral and nasal mucosa dry Neck: Trachea is in midline. No masses or JVD Lungs: Bilateral mildly decreased breath sounds. Bilateral basal crackles present. No rhonchi or wheezes Heart: Regular rate and rhythm. S1-S2 normal. No rubs or murmurs Abdomen: Soft, nontender and nondistended. Bowel sounds present MASTER CONTROL ENGINEER: Severe pain upon touching or even moving legs slightly. Can not understand or follow commands. Could not elicit neurological examination Extremities: 3+ bilateral pedal edema. No cyanosis or clubbing Skin: Warm and dry Being discharged to Rehab at [facility] on DNR with comfort care. *Problems/Diagnosis: (1) Acute kidney injury Status: Acute (2) Hyperkalemia Status: Acute (3) End stage renal disease Status: Acute Total Time Spent on D/C: > 30 Minutes Date of Service: Jul 28, 2025 Billing Provider: ZANDER MCWILLIAMS MD, ELIZABETH, RES Jul 28, 2025 15:33
== END 2025-07-28 15:16 | DRG 682 ==
LOC: ER 19:42 → EDBD 19:42 → ED HOLD 07-22 00:50 → PCU 3S 07-22 09:04 → SUR 3N 07-23 10:59
PROVIDERS: ADMIT Internal Medicine; ATTEND Family Medicine
DX: N17.0 Acute kidney failure with tubular necrosis (principal); I50.33 Acute on chronic diastolic (congestive) heart failure; R53.2 Functional quadriplegia; I13.2 Hypertensive heart and chronic kidney disease with heart failure and with stage 5 chronic kidney disease, or end stage renal disease; E87.5 Hyperkalemia; N18.6 End stage renal disease; D64.9 Anemia, unspecified; Z88.8 Allergy status to other drugs, medicaments and biological substances; Z88.0 Allergy status to penicillin; Z88.5 Allergy status to narcotic agent
CPT/HCPCS: 36415; 70450; 71045; 76700; 80053; 80061; 82550; 83036; 83735; 83880; 84484; 85025; 85610; 85651; 85730; 86140; 87081; 92508; 92616; 93005; 93306; 99285; A6212; A6213; G0378; J1644; J1815; J1938; J2270; J2405; J3490